=== PATIENT | female | born 1960 | race Caucasian/White ===

== ENCOUNTER → 2023-09-24 10:30 | Outpatient (REF) | payer BC, SELFPAY | LOC: WDC 10:30 | PROVIDERS: ATTENDING PHYSICIAN Obstetrics & Gynecology; FAMILY PHYSICIAN Internal Medicine | DX: N64.4 Mastodynia (principal) | CPT/HCPCS: 76642; 77062; 77066 ==

== ENCOUNTER → 2023-11-26 15:33 | Outpatient (REF) | payer BC, SELFPAY | LOC: RAD 15:33 | PROVIDERS: ATTENDING PHYSICIAN Internal Medicine Critical Care Medicine; FAMILY PHYSICIAN Internal Medicine | DX: R91.8 Other nonspecific abnormal finding of lung field (principal) | CPT/HCPCS: 71250 ==

== ENCOUNTER → 2024-01-29 08:08 | Outpatient (REF) | payer BC, SELFPAY ==
[2024-01-29 09:00] LABS: % Basophils 0.5 % (0-2); % Eosinophils 2.1 % (0-6); % Immature Granulocytes 0.5 % (0-0.5); % Lymphocytes 25.6 % (20.5-51.1); % Neutrophils 62.3 % (42.2-75.2); Absolute Eosinophils 0.1 10^3/uL (0-0.7); Absolute Lymphocytes 1.5 10^3/uL (1.2-3.4); Absolute Monocytes 0.5 10^3/uL (0.1-0.6); Absolute Neutrophils 3.6 10^3/uL (1.4-6.5); Hematocrit 43.4 % (37.0-47.0); Hemoglobin 14.6 g/dL (12.0-16.0); Mean Corp Hgb Conc. 33.6 g/dL (33.0-37.0); Mean Corpuscular Hgb 30.4 pg (27.0-31.0); Mean Corpuscular Volume 90.2 fL (81.0-99.0); Nucleated Red Blood Cells % 0 %; Platelet Count 247 10^3/uL (130-400); Red Blood Cell Count 4.81 10^6/uL (4.20-5.40); Red Cell Dist. Width 12.9 % (11.5-14.5); White Blood Cell Count 5.8 10^3/uL (4.8-10.8)
[2024-01-29 09:35] LABS: ALT (SGPT) 20 U/L (0-35); AST (SGOT) 29 U/L (14-36); Albumin 4.6 g/dl (3.5-5.0); Alkaline Phosphatase 70 U/L (38-126); Blood Urea Nitrogen 18 mg/dl (7-17); Calcium 10.1 mg/dl (8.4-10.2); Carbon Dioxide 29 mmol/L (22-30); Chloride 100 mmol/L (98-107); Glucose 89 mg/dl (70-99); HDL Cholesterol 75 mg/dl; LDL Cholesterol, Calculated 191 mg/dl; Sodium 137 mmol/L (135-145); Total Bilirubin 1.1 mg/dl (0.2-1.3); Total Cholesterol 293 mg/dl (50-199); Triglyceride 138 mg/dl (10-149); Very Low Density Lipoprotein 27 mg/dl (0-30); eGFR > 60.00
[2024-01-29 09:59] LABS: TSH Reflex To Free T4 1.11 uIU/ml (0.47-4.68)
== END ==
LOC: REG 08:08
PROVIDERS: ATTENDING PHYSICIAN Internal Medicine
DX: Z00.00 Encounter for general adult medical examination without abnormal findings (principal)
CPT/HCPCS: 36415; 80053; 80061; 84443; 85025

== ENCOUNTER 2024-06-10 15:10 | Inpatient (IN) | payer MEDICARE, OTHER, SELFPAY ==
[2024-06-10] VITALS (16 sets, daily range): BP systolic 105–128; BP diastolic 61–78; BMI 27.1; BMI 28.2
[2024-06-10] MEDS: ZOFRAN 4 MG IV ×2 (08:09→11:39)
[2024-06-10] MEDS: NSS 1000 IV ×3 (08:10→18:12)
[2024-06-10 08:17] LABS: ALT (SGPT) 14 U/L (0-35); AST (SGOT) 21 U/L (14-36); Alkaline Phosphatase 66 U/L (38-126); Blood Urea Nitrogen 7 mg/dl (7-17); Calcium 8.5 mg/dl (8.4-10.2); Carbon Dioxide 25 mmol/L (22-30); Chloride 94 mmol/L (98-107); Glucose 147 mg/dl (70-99); Potassium 4.1 mmol/L (3.5-5.1); Sodium 128 mmol/L (135-145); Total Bilirubin 1.5 mg/dl (0.2-1.3); Total Protein 6.8 g/dl (6.3-8.2); eGFR > 60.00
[2024-06-10 08:24] LABS: % Basophils 0.3 % (0-2); % Eosinophils 0.3 % (0-6); % Immature Granulocytes 0.3 % (0-0.5); % Monocytes 4.3 % (1.7-9.3); % Neutrophils 89.8 % (42.2-75.2); Absolute Basophils 0.1 10^3/uL (0-0.2); Absolute Eosinophils 0.1 10^3/uL (0-0.7); Absolute Immature Granulocytes 0.1 10^3/uL (0-0.05); Absolute Lymphocytes 0.9 10^3/uL (1.2-3.4); Absolute Monocytes 0.8 10^3/uL (0.1-0.6); Hematocrit 38.7 % (37.0-47.0); Hemoglobin 13.2 g/dL (12.0-16.0); Mean Corp Hgb Conc. 34.1 g/dL (33.0-37.0); Mean Corpuscular Hgb 29.5 pg (27.0-31.0); Mean Corpuscular Volume 86.6 fL (81.0-99.0); Mean Platelet Volume 9.8 fL (7.4-10.4); Nucleated Red Blood Cells % 0 %; Platelet Count 286 10^3/uL (130-400); Red Blood Cell Count 4.47 10^6/uL (4.20-5.40); Red Cell Dist. Width 12.9 % (11.5-14.5); White Blood Cell Count 17.8 10^3/uL (4.8-10.8)
--- NOTE | 2024-06-10 10:35 | ED.GENMED ---
History of Present Illness
General
Chief Complaint: Cold/Flu/URI Symptoms
Source: patient
Exam Limitations: none
Time Seen by Provider: 06/10/24 10:27
Nursing documentation reviewed up to this point in time: agreed with
History of Present Illness
History of Present Illness:
64-year-old female with history of chronic back pain, neuropathy, COPD, lung cancer with right upper lobectomy 2017, left lower lung wedge 06/2020, diverticulitis, GERD presents for significant cough, fever, body aches. Aches started 6 days ago, then
fever and chills. Saw PCP 3 days ago, tested flu +, Covid neg, on day 3 of Tamiflu, cannot sleep due to cough, is fatigued, nauseous. Yesterday fever 102.1. with milder URI.
Past History
Past History
ED Past Medical History: Asthma, Cancer (Lung adenocarcinoma), COPD and GERD
ED Past Surgical History: Bowel resection, Gynecological, Orthopedic, Urological and Other (Lung resection)
Social History
Tobacco: Former smoker
Alcohol: Occasional
Personal:
Living: with family
Employment: Employed
Family History
Family History: Other (Sr. with adenocarcinoma of the lung, followed with brain cancer. Family history of hypertension)
Review of Systems
Review of Systems
Allergies reviewed?: Yes
All Other Systems: ROS reviewed and negative except as documented in HPI and ROS
Constitutional: Reports fever, fatigue and chills
EENT: Denies sore throat
Respiratory: Reports cough; Denies trouble breathing
Cardiac: Denies chest pain
ABD/GI: Reports nausea; Denies abdominal pain, vomiting or diarrhea
: Denies dysuria, frequency or difficulty voiding
Musculoskeletal: Reports other (general body aches)
Skin: Reports no symptoms
Neurological: Reports no symptoms
Phy Exam
Physical Exam
Physical Exam:
GENERAL: No acute distress. A&Ox3.
CONSTITUTIONAL: Afebrile.
EYES: clear, conjunctivae normal
ENMT: moist mucus membranes, Pharynx nl
RESPIRATORY: Regular respirations, nonlabored. Frequent paroxysms of cough. Coarse BS throughout.
CARDIOVASCULAR: Regular rate and rhythm, tachycardic, no murmurs, no rubs.
GI: Soft, nontender, normal BS
MUSCULOSKELETAL: Moves with ease. Well perfused.
SKIN: Warm, dry, pink
PSYCH: Normal mood and affect. Well kept, interactive and appropriate
NEUROLOGIC: Awake, alert and oriented. No focal neurological deficits
Course
Orders/Labs/Results
Orders:
Orders
06/10/24 07:19
Electrocardiogram (*1) Urgent
Reason for Study: Vertigo / Dizzy
EKG- Treatment ONCE
Chest [CR Chest - 2 Views ] Urgent
Comment:
Reason For Exam: cough, shortness of breath
06/10/24 07:25
Ondansetron Injectable [Zofran] 4 mg .ROUTE .STK-MED ONE
06/10/24 07:43
Complete Blood Count/With Diff Urgent
Comprehensive Metabolic Panel Urgent
06/10/24 08:09
0.9% Sodium Chloride 1000 ml [Nss] 1,000 ml IV BOLUS
Ondansetron Injectable [Zofran] 4 mg IV NOW STA
06/10/24 10:45
0.9% Sodium Chloride 1000 ml [Nss] 1,000 ml IV BOLUS
Ondansetron Injectable [Zofran] 4 mg IV NOW STA
06/10/24 10:46
Acetaminophen [Tylenol] 1,000 mg PO NOW STA
06/10/24 10:55
CefTRIAXone [Rocephin] 1,000 mg IV NOW STA
06/10/24 10:56
Azithromycin 500 mg/250 ml [Zithromax Infusion] 500 mg in 250 ml IV NOW
06/10/24 11:44
Ketorolac [Toradol] 15 mg IV NOW STA
06/10/24 12:00
Metoclopramide [Reglan] 10 mg IV NOW STA
06/10/24 13:14
Aspirin 325 mg PO NOW STA
06/10/24 13:33
Troponin I Urgent
06/10/24 13:44
Admit/Transfer Patient As Directed
Co-Sign Provider:
Level of Care: Inpatient admission
Assign to:: IMU- Intermediate Care
Physician / Group: Hospitalist
Diagnosis: Flu PNA and abnormal ECG
Reason for Hospitalization: Flu PNA and abnormal ECG
Expected length of stay greater than two midnights?: Yes
ELOS- Estimated Length of Stay in days: 5
I certify the patient meets the requirements for IP care: Yes
PRN Pain Medication Management As Directed
May give lesser potent ordered pain med per pt: Yes
preference::
Protocol:: Medication orders for pain may be administered in a
manner that supports deferring to patient preference
when the pt is:
- Requesting an ordered lesser potent pain medication.
Least to most potent pain medications are defined
as: acetaminophen < NSAID < tramadol < opioids
(morphine, oxycodone, hydromorphone).
- Requesting a lesser dose of the same medication IF
ORDERED.
- Requesting a less intrusive route of administration
if both routes are prescribed by the provider (PO <
IV).
06/10/24 13:45
Code Status As Directed
Resuscitation Status: Full Code
06/10/24 Dinner
Regular
At Your Request: Full Participation
06/10/24 17:45
0.9% Sodium Chloride 1000 ml [Nss] 1,000 ml IV 125 mls/hr
Heparin 5,000 units SC Q8
Ibuprofen [Motrin] 400 mg PO Q6HPRN PRN
06/10/24 17:45
CARDIOLOGY CONSULT Routine
Consulting Provider: Zafar Mtz
Was physician already notified: Yes
Reason for consult: Abnormal ECG
PULMONARY CONSULT Routine
Consulting Provider: Hector Tran
Was physician already notified: Yes
Reason for consult: Flu PNA
Respiratory Culture/Gram Stain Urgent
RUPINDER Source: Sputum
Specimen Description:
Activity As Directed
Activity Level: Out of Bed-Early Mobility
Intake/ Output As Directed
Frequency: Per unit guidelines
Pneumatic Compression Sleeves As Directed
Type: Knee high
Vital Signs As Directed
Frequency: Per unit guidelines
Weight As Directed
Frequency: Once
Comment: on admission
Pt Eval And Treat Routine
Treatment: eval gait
Activity Level: With Assistance
DX Deep Vein Thrombosis Video Routine
06/10/24 18:00
Famotidine [Pepcid] 20 mg PO QPM
Montelukast Sodium [Singulair] 10 mg PO QPM
Pantoprazole [Protonix] 40 mg PO DAILY
06/10/24 20:00
Guaifenesin [Mucinex] 600 mg PO Q12
Oseltamivir Phosphate [Tamiflu] 75 mg PO BID
06/11/24 04:52
Basic Metabolic Panel IN AM
Complete Blood Count/No Diff IN AM
06/11/24 12:00
Azithromycin 500 mg/250 ml [Zithromax Infusion] 500 mg in 250 ml IV Q24H
CefTRIAXone [Rocephin] 1,000 mg IV Q24H
Abnormal Lab Results
06/10/24
07:43
WBC 17.8 H 10^3/uL
(4.8-10.8)
Abs Immat Gran (auto) 0.1 H 10^3/uL
(0-0.05)
Absolute Neuts (auto) 16.0 H 10^3/uL
(1.4-6.5)
Absolute Lymphs (auto) 0.9 L 10^3/uL
(1.2-3.4)
Absolute Monos (auto) 0.8 H 10^3/uL
(0.1-0.6)
Neutrophils % 89.8 H %
(42.2-75.2)
Lymphocytes % 5.0 L %
(20.5-51.1)
Sodium 128 L mmol/L
(135-145)
Chloride 94 L mmol/L
(98-107)
Glucose 147 H mg/dl
(70-99)
Total Bilirubin 1.5 H mg/dl
(0.2-1.3)
06/10/24 07:43
06/10/24 07:43
Vital Signs
Initial and Last Documented VS:
Initial Vital Signs
Temp Pulse Resp BP Pulse Ox
99.2 F 111 18 117/71 95
06/10/24 07:15 06/10/24 07:15 06/10/24 07:15 06/10/24 07:15 06/10/24 07:15
Last Documented Vital Signs
Temp Pulse Resp BP Pulse Ox
98.2 F 90 18 125/74 93
06/11/24 05:53 06/11/24 07:25 06/11/24 07:25 06/11/24 06:00 06/11/24 09:49
MDM/Problems Addressed
Differential Diagnosis Includes:
Covid, Flu, PNA, viral URI
MDM/Problems Addressed:
64-year-old female with history of chronic back pain, neuropathy, COPD, lung cancer with right upper lobectomy 2017, left lower lung wedge 06/2020, diverticulitis, GERD presents for significant cough, fever, body aches. Aches started 6 days ago, then
fever and chills. Saw PCP 3 days ago, tested flu +, Covid neg, on day 3 of Tamiflu, cannot sleep due to cough, is fatigued, nauseous. Yesterday fever 102.1. with milder URI.
Afebrile, appears mildly ill
EKG: Sinus tach with PVCs. Normal QT interval
10:30 a.m.
CBC: WBC 17.8 w L shift
CMP: Na 128
CXR radiology report read: IMPRESSION:
1. Findings suggestive of right upper lobe pneumonia. No significant parapneumonic effusion.
2. Radiographic follow-up to resolution is recommended to exclude underlying pulmonary lesion.
64 yo with cough, leukocytosis with shift, +Flu A, fever, sleep disturbance due to cough, hx lung CA with partial lung resection, RUL pneumonia on CXR, acute hyponatremia, remains tachycardic after 1L NSS
Pt remains nauseous (no vomiting)after Zofran, will give second dose, will start give IV antibiotics
Discussed admission vs DC home, Pt wants to be admitted
11:00 a.m.
Plan: Admit: PNA, acute hyponatremia,
Hospitalist notified of admission.
At patient's request, Tylenol order changed to Toradol.
12:00 p.m.
Vomiting, Reglan ordered
[facility] and concern for dynamic change/?ischemia, will order Troponin.
Troponin WNL
*Critical Care Note
Total Time (30-74mins, 75-104mins- exclusive of procedures): Not Applicable
ED Attending Note
-
Portions of this chart may have been created with voice recognition software.� Occasional wrong word or��sound alike� substitutions may have occurred due to the inherent limitations of voice recognition software.
Discharge Plan
Departure
Patient Disposition: Admit
Date of Disposition: 06/10/24
Time of Disposition: 11:08
Admit to: Telemetry
Presentation/result/management discussed w/ accepting MD/DO: Hospitalist
Condition: Fair
Discharge Problem:
RUL pneumonia, Acute hyponatremia, Flu dt nvl A w oth resp
Interventions
Interventions:
*Risk Screen - Suicide Last Done: 06/10/24 07:18
*General Assessment Last Done: 06/10/24 07:18
*Neglect/Abuse Screening Last Done: 06/10/24 07:18
ED- Fall Risk Assessment Last Done: 06/10/24 10:41
*ED COVID-19 Vaccine History Last Done: 06/10/24 07:18
*Nursing Disposition Last Done: 06/10/24 16:56
ED- Pulmonary Assessment Last Done: 06/10/24 10:41
Discharge Date and Time
Discharge Date/Time: 06/10/24 17:25
--- NOTE | 2024-06-10 10:40 | EDRN ---
Angelina Siddiqui PORCELAIN ENAMEL REPAIRER currently at the pts bedside
[2024-06-10] MEDS: ROCEPHIN 1000 MG IV (11:40)
[2024-06-10] MEDS: ZITHROMAX INFUSION 250 IV (11:40)
[2024-06-10] MEDS: TORADOL 15 MG IV (11:46)
--- NOTE | 2024-06-10 11:57 | EDRN ---
the pt pressed the clal grider and this RN entered the pts room and the pt stated that she needed to go to the bathroom and felt like she was going to throw up, this RN unhooked the pt from the monitor and the pt was able to ambulate to the bathroom
and is sitting on the toilet with the trash can and is dry heaving into the trash can, this RN notified Angelinageorgette Siddiqui DIRECTOR EXECUTIVE COMMUNICATIONS, the pt was notified to pull the call grider in the bathroom when she was finished or if she needed help
[2024-06-10] MEDS: REGLAN 10 MG IV (12:04)
--- NOTE | 2024-06-10 12:28 | EDRN ---
the pts was brought back to the pts room, the pt is currently sitting in the chair in the room with her legs propped up on the stretcher, the pt stated that she is more comfortable in the chair, Sp02 98% on RA, HR in the 90's, no s/s of
distress, the pt states that her nausea is gone, call grider within reach, will continue to monitor the pt closely
--- NOTE | 2024-06-10 12:31 | EDRN ---
the pt pressed the call grider and this RN entered the pts room, the pt was laying in the stretcher and stated that she is ready to lay down now, the pt also changed herself into the hospital gown that was provided for her, no s/s of distress, the pt
is resting in stretcher in the lowest position, side rails up x2, call grider within reach, HOB elevated, will continue to monitor the pt closely
--- NOTE | 2024-06-10 13:29 | HPS.HSE ---
Family Physician
-
Family Physician: Kimberly Sinclair
Chief Complaint
-
cough
History of Present Illness
64-year-old woman with history of:
chronic back pain,
neuropathy,
COPD,
lung cancer with right upper lobectomy 2017, left lower lung wedge 06/2020,
diverticulitis,
GERD
presents with significant cough, fever, body aches. The aches started 6 days ago, then fever and chills. She saw her PCP 3 days ago, and tested flu +, Covid neg. She is now on day 3 of Tamiflu, cannot sleep due to cough, is fatigued, nauseous.
Yesterday she had a fever 102.1. with milder URI. She had a flu vaccine this year. able to answer questions appropriately and was not using secondary muscles of respiration. Satting at 92% on RA.
Medical History
Past Medical History
Past Medical History: Reports Other
Additional Past Medical History:
Asthma,
Cancer (Lung adenocarcinoma),
COPD
GERD
Bowel resection,
Gynecological, Orthopedic, Urological surgeries
Lung resection
UTI
Uterine leiomyoma (fibroids)
DIVERTICULITIS
LOW BACK PAIN
sciatic pain-combo injections
Meniscus tear, right knee
Atypical ductal hyperplasia of breast
Bronchitis, chronic recurrent
Pneumonia
Colon polyps, benign
Obstructive sleep apnea
Lung Cancer x2
ascending aortic aneurysm
bilateral bunion repair
Bilateral tubal ligation
Right meniscus repair (2011)
Uterine Fibroids embolization x 2
Uterine fibriods with ablation
Lumpectomy, right breast 05/2016
R U lobectomy (November 2017)
LL lobe resection 07/13/2020
Laparoscopic sigmoidectomy ([facility]) 10/03/2021
MRSA
Past Surgical History: Reports Other
Additional Past Surgical History:
see above
Social History
Tobacco: Former Smoker
Alcohol: None
Drug: None
Personal:
Living: With Family
Employment: Retired
Family History
Family History: Cancer
Allergies / Home Medications
Allergies reflects when Allergies were last updated in [facility].
Home Medications with original date entered in [facility]
Allergy/Medication List:
Allergies
Allergy/AdvReac Type Severity Reaction Status Date / Time
codeine Allergy Hives - Verified 06/10/24 07:15
SEE COMMENT
Gadolinium-Containing Allergy Hives / Verified 06/10/24 07:15
Contrast Medi MRI dye
[Gadolinium-Containing
Contrast Media]
Sulfa (Sulfonamide Allergy Hives Verified 06/10/24 07:15
Antibiotics)
tetracycline Allergy Hives Verified 06/10/24 07:15
Home Medications
albuterol sulfate 90 mcg/actuation aerosol inhaler 2 puff inhalation R Q4HPRN PRN sob 01/05/18
multivitamin with folic acid 400 mcg tablet (Tab-A-Lizeth) 1 tab PO DAILY Supplement 01/05/18
montelukast 10 mg tablet 10 mg PO QPM Lung/breathing issues 06/24/19
esomeprazole magnesium 40 mg capsule,delayed release (Nexium) 40 mg PO DAILY Gastrointestinal issue 09/30/21
famotidine 20 mg tablet 20 mg PO QPM Gastrointestinal issue 09/30/21
budesonide-formoterol HFA 160 mcg-4.5 mcg/actuation aerosol inhaler (Symbicort) 2 inh inhalation R BID 06/10/24
ibuprofen 200 mg tablet 400 mg PO Q6HPRN PRN moderate pain 06/10/24
oseltamivir 75 mg capsule (Tamiflu) 75 mg PO BID 06/10/24
Review of Systems
-
History Source: Patient
A 12 point ROS was completed and negative except as noted: Yes
Constitutional: Reports Fever, Fatigue, Sleep Disturbance and Night Sweats
Respiratory: Reports Cough and Trouble Breathing
Physical Exam
Vital Signs
Vital Signs
Temp Pulse Resp BP Pulse Ox
99.2 F 103 19 126/71 95
06/10/24 11:51 06/10/24 11:51 06/10/24 11:51 06/10/24 11:51 06/10/24 11:51
Physical Exam
General: Well Developed, Well Nourished, Conversant and Respiratory Distress
HEENT: NormoCephalic, Nose Appears Normal and Ears Appear Normal
Respiratory: Rhonchi and Decreased Breath Sounds
Cardiac: S1/S2 and Regular Rhythm
GI: Soft, Non Tender and Non Distended
Musculoskeletal: No Clubbing, No Cyanosis and No Edema
Skin: Warm and Dry
Neuro: Awake, Alert, Oriented and AO x 3
Psych: Calm
Laboratory Results
-
06/10/24 07:43
06/10/24 07:43
Laboratory Results
Total Bilirubin 1.5 mg/dl (0.2-1.3) H 06/10/24 07:43
AST 21 U/L (14-36) 06/10/24 07:43
ALT 14 U/L (0-35) 06/10/24 07:43
Alkaline Phosphatase 66 U/L (38-126) 06/10/24 07:43
Data Reviewed
-
Lab Data: Labs Reviewed by me
Impression/Plan
-
IMPRESSION:
64 woman with +Flu-a PNA and an abnormal ECG. Relevant findings:
ECG:
SINUS TACHYCARDIA WITH FREQUENT PREMATURE VENTRICULAR COMPLEXES
POSSIBLE LEFT ATRIAL ENLARGEMENT
T WAVE ABNORMALITY, CONSIDER ANTEROLATERAL ISCHEMIA
CXR:
1. Findings suggestive of right upper lobe pneumonia. No significant parapneumonic effusion.
2. Radiographic follow-up to resolution is recommended to exclude underlying pulmonary lesion.
Na 128
WBC 17.8
PLAN:
1. +Flu-A PNA. No contacts with birds or cows. post surgical / post cancer lung anatomy.
Admit to IMU
Pulmonary consult
Question: should tamiflu be continued?
Given h/o asthma, add steroids and nebs
She already had abx in ED, next dosing to be decided after pulmonary consult
Note that she does have a h/o MRSA
2. Abnormal ECG - Flu is a highly inflammatory event and rates of NH are higher after flu infections
ASA now
Cycle troponins
Cardiology consult
Telemetry
3. Hyponatremia - likely hypovolemic hyponatremia
Normal saline
4. GERD - continue PPI
Full code
VCD for DVTp
[2024-06-10] MEDS: ASPIRIN 325 MG PO (13:30)
[2024-06-10 14:07] LABS: Troponin I < 0.012 ng/ml
--- NOTE | 2024-06-10 14:22 | EDRN ---
this RN noticed that the pts Sp02 dipped to 90% on RA, this RN notified the provider and entered the pts room on 2L NC Sp02 96%, no c/o SOB, no c/o chest pain
--- NOTE | 2024-06-10 15:12 | CON.CAR ---
Addendum entered and electronically signed by Zafar Mtz MD 06/10/24 16:33:
I saw and examined the patient.
The MANAGER IN TRAINING's note was reviewed and I agree with the note.
Comment: 64 y/o female with asthma, lung cancer s/p resection, GERD, and COPD who has had cough, fever, chills, aches and tested positive for flu as OP. Symptoms did not improve and she is here for further management. She has had a dull chest ache
for about a week. This does not appear cardiac in nature, however, will obtain another troponin and if negative she can follow up as an outpatient.
- troponin pending
Original Note:
Consultation
Consultation Request
Date/Time Consultation Requested: 06/10/24 1406
Date/Time Consultation Performed: 06/10/24 1450
Requesting Provider: Dr. Al
Performing Provider: Nora CALIX for Dr. Mtz
Reason for Consultation: Abnormal EKG and CP
Medical History
-
Chief Complaint: flu symptoms
History of Present Illness:
64 y/o female with asthma, lung cancer s/p resection, GERD, and COPD who has had cough, fever, chills, aches and tested positive for flu as OP. Symptoms did not improve and she is here for further management. She has had a dull chest ache for about
a week. Her EKG shows anterior and lateral T wave inversions. Troponin is normal. She is coughing throughout our visit, which is one of her main complaints. CXR shows PNA.
Past Medical History
Past Medical History: Asthma, COPD and GERD
Social History
Tobacco: Former Smoker
Personal:
Living: With Family
Allergies / Home Medications
Allergy/AdvReac Type Severity Reaction Status Date / Time
codeine Allergy Hives - Verified 06/10/24 07:15
SEE COMMENT
Gadolinium-Containing Allergy Hives / Verified 06/10/24 07:15
Contrast Medi MRI dye
[Gadolinium-Containing
Contrast Media]
Sulfa (Sulfonamide Allergy Hives Verified 06/10/24 07:15
Antibiotics)
tetracycline Allergy Hives Verified 06/10/24 07:15
�Medication �Instructions �Recorded �Confirmed �Type
albuterol sulfate 90 mcg/actuation 2 puff inhalation R Q4HPRN PRN sob 01/05/18 06/10/24 History
aerosol inhaler
multivitamin with folic acid 400 1 tab PO DAILY Supplement 01/05/18 06/10/24 History
mcg tablet (Tab-A-Lizeth)
montelukast 10 mg tablet 10 mg PO QPM Lung/breathing issues 06/24/19 06/10/24 History
esomeprazole magnesium 40 mg 40 mg PO DAILY Gastrointestinal 09/30/21 06/10/24 History
capsule,delayed release (Nexium) issue
famotidine 20 mg tablet 20 mg PO QPM Gastrointestinal issue 09/30/21 06/10/24 History
budesonide-formoterol HFA 160 2 inh inhalation R BID 06/10/24 06/10/24 History
mcg-4.5 mcg/actuation aerosol
inhaler (Symbicort)
ibuprofen 200 mg tablet 400 mg PO Q6HPRN PRN moderate pain 06/10/24 06/10/24 History
oseltamivir 75 mg capsule (Tamiflu) 75 mg PO BID 06/10/24 06/10/24 History
Review of Systems
-
History Source: Patient
All other systems: Negative unless noted
Constitutional: Fever and Chills
Respiratory: Cough
Musculoskeletal: Muscle Pain
Physical Exam
Vital Signs
Temp Pulse Resp BP Pulse Ox
97.5 F 99 20 105/65 95
06/10/24 14:17 06/10/24 15:00 06/10/24 14:17 06/10/24 15:00 06/10/24 15:00
Lab Results
06/10/24 07:43
06/10/24 07:43
Troponin I < 0.012 ng/ml 06/10/24 13:33
Physical Exam
General: Well Developed, Well Nourished and No Apparent Distress
HEENT: Normocephalic and Anicteric
Respiratory: Wheezes, Rhonchi and Other (on 2L NC)
Cardiac: Regular Rhythm
Neuro: AO x 3
Psych: Calm
Impression / Plan
-
Flu, PNA:
-s/p IV abx. On Tamiflu.
-also with history of asthma/COPD and on steroids and breathing tx. Also hx lung cancer s/p surgery.
-pulmonary is consulted.
-continue medicines and treatment as per internal medicine and pulmonary teams
Abnormal EKG:
-in setting of acute illness
-troponin is normal, check another to ensure no change. Likely OP stress test, unless trop becomes abnormal.
-her CP has been present for 1 week and is likely related to coughing, PNA, and does not sound to be anginal.
GERD:
-on H2 david and PPI- continue
Data Reviewed
-
EKG: Tracing Personally Visualized and interpreted (ST with PVC's 105 BPM, T wave inversions anterior and lateral)
Radiology: Report Reviewed by me (CXR: findings suggestive of right upper lobe pneumonia. No significant parapneumonic effusion. 2. Radiographic follow-up to resolution is recommended to exclude underlying pulmonary lesion.)
Labs: Labs Reviewed by me
--- NOTE | 2024-06-10 15:51 | CON.PUL ---
Consultation
Consultation Request
Date/Time Consultation Requested: 06/10/2024
Date/Time Consultation Performed: 06/10/2024
Requesting Provider: Dr. lA
Performing Provider: Dr. Hector Devine
Reason for Consultation: Hypoxemic respiratory failure
Medical History
-
History of Present Illness:
64-year-old woman with past medical history significant for prior lung resection from lung cancer x 2, mild COPD with chronic bronchitis, former smoker, chronic back pain, prior history of MRSA pneumonia with complication requiring chest tube
placement, presented with cough, fever and bodyaches. Symptoms started about 6 days ago with fevers and chills. Primary doctor evaluated patient and diagnosed with influenza A. COVID-negative. Started on Tamiflu. Cough was significant,
interfering with lifestyle, sleep etc. She feels fatigued and nauseous.
Fever up to 102 �F. Patient is flu vaccinated this year.
92% on room air.
Chest x-ray performed on admission showed right upper lobe infiltrate suggesting pneumonia.
Patient denies any nausea, vomiting, diarrhea. Denies hemoptysis.
Past Medical History
Past Medical History: Other (See assessment and plan)
Social History
Tobacco: Former Smoker (1-1/2 pack/day for 20 years quit in 1994.)
Alcohol: None
Drug: None
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
Family History
Family History: Reviewed & Not Pertinent
Allergies / Home Medications
Allergies
Allergy/AdvReac Type Severity Reaction Status Date / Time
codeine Allergy Hives - Verified 06/10/24 07:15
SEE COMMENT
Gadolinium-Containing Allergy Hives / Verified 06/10/24 07:15
Contrast Medi MRI dye
[Gadolinium-Containing
Contrast Media]
Sulfa (Sulfonamide Allergy Hives Verified 06/10/24 07:15
Antibiotics)
tetracycline Allergy Hives Verified 06/10/24 07:15
Home Medications
�Medication �Instructions �Recorded �Confirmed �Last Taken �Type
albuterol sulfate 90 mcg/actuation 2 puff inhalation R Q4HPRN PRN sob 01/05/18 06/10/24 06/09/24 History
aerosol inhaler
multivitamin with folic acid 400 1 tab PO DAILY Supplement 01/05/18 06/10/24 06/09/24 History
mcg tablet (Tab-A-Lizeth)
montelukast 10 mg tablet 10 mg PO QPM Lung/breathing issues 06/24/19 06/10/24 06/09/24 History
esomeprazole magnesium 40 mg 40 mg PO DAILY Gastrointestinal 09/30/21 06/10/24 06/09/24 History
capsule,delayed release (Nexium) issue
famotidine 20 mg tablet 20 mg PO QPM Gastrointestinal issue 09/30/21 06/10/24 06/09/24 History
budesonide-formoterol HFA 160 2 inh inhalation R BID 06/10/24 06/10/24 06/09/24 History
mcg-4.5 mcg/actuation aerosol
inhaler (Symbicort)
ibuprofen 200 mg tablet 400 mg PO Q6HPRN PRN moderate pain 06/10/24 06/10/24 06/09/24 History
oseltamivir 75 mg capsule (Tamiflu) 75 mg PO BID 06/10/24 06/10/24 06/09/24 History
Review of Systems
-
History Source: Patient
All other systems: Negative unless noted
Vitals / Labs / Diagnostic Testing
Vital Signs
Temp Pulse Resp BP Pulse Ox
97.5 F 99 20 105/65 95
06/10/24 14:17 06/10/24 15:00 06/10/24 14:17 06/10/24 15:00 06/10/24 15:00
Lab Data
06/10/24 07:43
06/10/24 07:43
Diagnostic Testing:
Physical Exam
-
HEENT: Normocephalic
Cardiovascular: S1/S2
Respiratory: Clear and Non-Labored Respirations
GI: Soft and Non Distended
Neurology: Awake, Oriented and No Motor Deficits
Skin: Warm
General: Comfortable
Assessment
-
64-year-old woman with past medical history noted. Admitted with cough, fever, shortness of breath. 3 days ago diagnosed with flu, started on Tamiflu by primary doctor. Symptoms progressed and patient came to the emergency room for evaluation.
Chest x-ray demonstrated right upper lobe infiltrate. We were consulted for further evaluation.
Right upper lobe pneumonia-suspect superinfection-flu +3 days ago
MRSA screening positive in 2021
Leukocytosis
Hyponatremia
Conditions present prior admission:
Obstructive sleep apnea-mild AHI 10.8 events per hour-intolerant to CPAP
COPD/chronic bronchitis
Pulmonary function testing 04/07/2024: FEV1 80% of predicted/FVC 86% of predicted/FEV1/FVC ratio 71%/DLCO 75%.
On Symbicort/follows up with Dr. Mullen-last appointment 04/07/2024.
Last prednisone was in the spring 2022
Prior history of complicated parapneumonic effusion in December 2017 with MRSA pneumonia
Multiple pulmonary nodules stable December 2023-plan was to repeat December 2024.
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
Family history of lung cancer
chronic back pain
Neuropathy
History of diverticulitis
GERD
History of ascending aortic aneurysm
Right breast lumpectomy 2015
Laparoscopy with sigmoidectomy 10/03/2021
Assessment and plan:
Clinical picture consistent with influenza pneumonia-suspect bacterial superinfection-chest x-ray on admission with right upper lobe infiltrate. New compared to prior.
-
Continue Tamiflu complete 5 days.
Agree with ceftriaxone/azithromycin-hopefully 5 to 7-day course depending on clinical situation.
Sputum culture, if able to produce.
Blood cultures pending.
Trend - Currently afebrile leukocytosis
Patient has history of MRSA in the past
Obtain MRSA screening, if patient not doing well and depending on the sputum culture may need to consider vancomycin. For now hold
-
Currently not requiring oxygen supplementation
-
COPD mild-usually on Symbicort-minimal expiratory wheezing on exam.
With significant coughing unclear whether she is going to be able to perform inhaler maneuver. Discussed with patient will transition to DuoNebs 3 times a day while in the hospital.
Antitussives
Mucolytic
Cepacol lozenges
Continue IV steroids for now-8 mg IV every 6 -hopefully short taper
-
Oxygen supplementation as needed-pulse ox above 90% at the moment.
-
Patient will need radiographic follow-up
-
Outpatient follow-up with Dr. Mullen after DC. Last time seen in the office in March 2024 she was doing well
[2024-06-10] MEDS: PEPCID 20 MG PO (18:11)
[2024-06-10] MEDS: DECADRON 8 MG IV ×2 (18:11→23:51)
[2024-06-10] MEDS: PROTONIX 40 MG PO (18:11)
[2024-06-10] MEDS: SINGULAIR 10 MG PO (18:12)
[2024-06-10] MEDS: HEPARIN 5000 UNITS SC (18:17)
[2024-06-10] MEDS: DECADRON IV (18:17)
--- NOTE | 2024-06-10 18:40 | PTCARENOTE ---
Received pt from ED at 17:45. Pt ambulated from stretcher to bed w/o incident. Pt AAOx3, able to make needs known. Admission questions completed. VSS. 95% on 2LNC. NSS @125ml/hr started through R AC. No complaints of pain at this time. Will continue
to monitor.
[2024-06-10 19:04] LABS: Troponin I 0.018 ng/ml
[2024-06-10] MEDS: TAMIFLU 75 MG PO (20:00)
[2024-06-10] MEDS: MUCINEX 600 MG PO (20:00)
[2024-06-10] MEDS: DUONEB 3 ML INH (20:21)
[2024-06-10] MEDS: HEPARIN SC (23:51)
[2024-06-11] VITALS (17 sets, daily range): BP systolic 109–134; BP diastolic 56–93; PULSE 93; O2SAT 96; BMI 27.9
[2024-06-11] MEDS: NSS 1000 IV ×3 (02:19→21:01)
[2024-06-11 05:15] LABS: Hematocrit 37.1 % (37.0-47.0); Hemoglobin 12.2 g/dL (12.0-16.0); Mean Corp Hgb Conc. 32.9 g/dL (33.0-37.0); Mean Corpuscular Hgb 28.8 pg (27.0-31.0); Mean Corpuscular Volume 87.5 fL (81.0-99.0); Platelet Count 251 10^3/uL (130-400); Red Blood Cell Count 4.24 10^6/uL (4.20-5.40); Red Cell Dist. Width 13.1 % (11.5-14.5); White Blood Cell Count 11.2 10^3/uL (4.8-10.8)
[2024-06-11 05:35] LABS: Blood Urea Nitrogen 8 mg/dl (7-17); Calcium 8.2 mg/dl (8.4-10.2); Carbon Dioxide 23 mmol/L (22-30); Chloride 103 mmol/L (98-107); Estimated Creatinine Clearance 106 ml/min; Glucose 147 mg/dl (70-99); Potassium 4.5 mmol/L (3.5-5.1); Sodium 136 mmol/L (135-145); eGFR > 60.00
[2024-06-11] MEDS: DECADRON 8 MG IV ×3 (06:24→17:10)
[2024-06-11] MEDS: DUONEB 3 ML INH ×3 (07:22→19:29)
[2024-06-11] MEDS: MUCINEX 600 MG PO ×2 (08:51→19:50)
[2024-06-11] MEDS: HEPARIN 5000 UNITS SC (08:51)
[2024-06-11] MEDS: TAMIFLU 75 MG PO ×2 (08:51→19:50)
[2024-06-11] MEDS: PROTONIX 40 MG PO (08:51)
[2024-06-11] MEDS: ROCEPHIN 1000 MG IV (11:43)
[2024-06-11] MEDS: ZITHROMAX INFUSION 250 IV (11:43)
[2024-06-11] MEDS: MOTRIN 400 MG PO (11:51)
--- NOTE | 2024-06-11 12:52 | W.PN.HOSP.TC ---
Today's Communication/Plan
-
Continue with IV antibiotics and Tamiflu
Monitor respiratory status
Possible discharge tomorrow
Assessment / Plan
Assessment / Plan
#Acute hypoxemic respiratory insufficiency
#Possible superimposed bacterial CAP
#H/O lung cancer s/p wedge resection
-Influenza A test positive; unclear source of infection; presented with shortness of breath and fever
-Continued on Tamiflu, started on ceftriaxone and azithromycin for possible pneumonia
-Has clinically improved since admission, now weaned off of oxygen
-Will continue with Tamiflu to complete 5-day course
-Continue with ceftriaxone and azithromycin, plan 7 days of Abx
-Trend CBC and temperature curve
#Abnormal ECG
-Was evaluated by cardiology, no suspicion for acute infarct or arrhythmia
-Troponin was normal here
-Can consider outpatient stress test
#GERD
-Home medications include famotidine
-No known history of erosive disease or Danielle's esophagus
#COPD
-Home medications include Symbicort and as needed albuterol MDI
-Does not require supplemental oxygen at baseline; no recent PFT available
-No signs of exacerbation here
DVT prophylaxis: Subcutaneous heparin
Diet: Regular
CODE STATUS: Full code
Disposition: Possible discharge home tomorrow
Anticipated Discharge: Within 24 hours
Subjective/Interval History
-
Date of Service: June 11, 2024
Seen and examined at the bedside. No acute events reported overnight. AFVSS this morning on room air
She states she feels better, was removed from supplemental oxygen and continues to feel well
Denies any acute complaints including chest pain, fevers or chills, GI issues, urinary issues, bleeding or bruising, paresthesias or weakness
Objective Data
-
Labs:
Laboratory Results
06/11/24
04:52
WBC 11.2 H
Hgb 12.2
Hct 37.1
Plt Count 251
Sodium 136 D
Potassium 4.5
Chloride 103
Carbon Dioxide 23
BUN 8
Creatinine 0.6
Glucose 147 H
Calcium 8.2 L
Vital Signs:
Vital Signs
Temp Pulse Resp BP Pulse Ox
97.6 F 90 18 118/73 96
06/11/24 11:05 06/11/24 12:47 06/11/24 12:47 06/11/24 10:00 06/11/24 12:47
I&O
06/10/24 06/11/24 06/12/24
06:59 06:59 06:59
Intake Total 480 / 480 240 / 240
Balance 480 / 480 240 / 240
Review of Systems
-
History Source: Patient
All other systems: Reviewed and negative
Physical Exam
-
General: Well Developed, Well Nourished, No Apparent Distress and Comfortable
HEENT: Normocephalic, Atraumatic, Moist Mucous Membranes and Anicteric
Respiratory: Rhonchi and Non Labored Respirations; Negative Accessory Resp Muscle Use
Cardiac: Regular Rhythm and S1/S2; Negative Murmur, Rub or Gallop
GI: Soft, Nontender, Nondistended and Normal Bowel Sounds
Musculoskeletal: No Clubbing, No Cyanosis and No Edema
Skin: Warm and Dry; Negative Rash
Neuro: AO x 3 and Nonfocal/Grossly Intact; Negative Tremors
Psych: Calm
Data Reviewed
-
Labs: Labs Reviewed by me and Discussed with Patient
--- NOTE | 2024-06-11 15:09 | PTCARENOTE ---
Assumed care of patient this morning. She is aaox3. States she is feeling better than yesterday. Pt now on RA. Pt does have a harsh cough but unable to bring anything up at this time. Pt provided IS and acapella, per request of while he
was at the bedside. Pt provided education on both. Pt is refusing SCDs, education provided and pt reports 'I am getting up and moving.' Initially refused Heparin SC but then accepted. Pt denies any nausea or vomiting. Pt reports minimal pain but did
ask for Motrin, see MAR. Assessment, care and VS as charted.
--- NOTE | 2024-06-11 16:06 | CM ---
Patient seen at bedside
Dx: flu, PNA
IA completed
Lives in a 2 story home with , 2 steps to enter, flight to second floor
PLOF: Independent, works at cardiology office
Denies DME
has had vn in past does not recall agency, denies Rehab
PCP: Kimberly Sinclair
Pharmacy: [facility], [address] [place]
PLAN: Home, no anticipated needs
to transport
[2024-06-11] MEDS: SINGULAIR 10 MG PO (17:09)
[2024-06-11] MEDS: HEPARIN SC ×2 (17:09→23:20)
[2024-06-11] MEDS: PEPCID 20 MG PO (17:09)
--- NOTE | 2024-06-11 18:27 | W.PN.PUL3 ---
Today's Communication / Plan
-
Continue airway clearance
Continue antibiotics
May consider coming down on the steroids
DVT prophylaxis
Tamiflu
Assessment
-
64-year-old woman with past medical history noted. Admitted with cough, fever, shortness of breath. 3 days ago diagnosed with flu, started on Tamiflu by primary doctor. Symptoms progressed and patient came to the emergency room for evaluation.
Chest x-ray demonstrated right upper lobe infiltrate. We were consulted for further evaluation.
Right upper lobe pneumonia-suspect superinfection-flu +3 days ago
MRSA screening positive in 2021
Leukocytosis
Hyponatremia
Conditions present prior admission:
Obstructive sleep apnea-mild AHI 10.8 events per hour-intolerant to CPAP
COPD/chronic bronchitis
Pulmonary function testing 04/07/2024: FEV1 80% of predicted/FVC 86% of predicted/FEV1/FVC ratio 71%/DLCO 75%.
On Symbicort/follows up with Dr. Mullen-last appointment 04/07/2024.
Last prednisone was in the spring 2022
Prior history of complicated parapneumonic effusion in December 2017 with MRSA pneumonia
Multiple pulmonary nodules stable December 2023-plan was to repeat December 2024.
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
Family history of lung cancer
chronic back pain
Neuropathy
History of diverticulitis
GERD
History of ascending aortic aneurysm
Right breast lumpectomy 2016
Laparoscopy with sigmoidectomy 10/03/2021
Assessment and plan:
Clinical picture consistent with influenza pneumonia-suspect bacterial superinfection-chest x-ray on admission with right upper lobe infiltrate. New compared to prior.
-
Continue Tamiflu complete 5 days.
Continue ceftriaxone/azithromycin-hopefully 5 to 7-day course depending on clinical situation.
Sputum culture, if able to produce.
Blood cultures pending.
Trend - Currently afebrile leukocytosis
Patient has history of MRSA in the past
Obtain MRSA screening, if patient not doing well and depending on the sputum culture may need to consider vancomycin. For now hold
-
Currently not requiring oxygen supplementation
-
COPD mild-usually on Symbicort-minimal expiratory wheezing on exam.
With significant coughing unclear whether she is going to be able to perform inhaler maneuver. Discussed with patient will transition to DuoNebs 3 times a day while in the hospital.
Antitussives
Mucolytic
Cepacol lozenges
Continue IV steroids for now-8 mg IV every 6 -hopefully short taper
-
Oxygen supplementation as needed-pulse ox above 90% at the moment.
-
Patient will need radiographic follow-up
DVT prophylaxis: Subcutaneous heparin. Patient refusing sequential. She states she is ambulating
-
Outpatient follow-up with Dr. Mullen after DC. Last time seen in the office in March 2024 she was doing well
Subjective Data
-
Date of Service:
Date of Service: June 11, 2024
Subjective:
Patient seen earlier today, late entry. Continues to have productive cough. Denies hemoptysis. Has mild vague chest discomfort. Appears to be in good spirits
Objective Data
Data Reviewed
Vital Signs / I&O / Oxygen:
Vital Signs
Temp Pulse Resp BP Pulse Ox
98.0 F 98 19 122/60 93
06/11/24 16:00 06/11/24 18:00 06/11/24 18:00 06/11/24 18:00 06/11/24 18:00
Intake and Output
06/10/24 06/11/24 06/12/24
06:59 06:59 06:59
Intake Total 480 / 480 2825 / 2825
Balance 480 / 480 2825 / 2825
SaO2 93
Nasal Cannula flow liters per 0
minute
Physical Exam
General: Comfortable
HEENT: Normocephalic and Anicteric
Cardiovascular: S1-S2, Regular Rhythm, Murmur (n), Rub (n) and Peripheral Edema (n)
Respiratory: Wheeze (n), Crackles, Rhonchi (Scattered) and Non-Labored Respirations
GI: Soft, Non Distended and Non Tender
Neurology: Awake, Alert and No Motor Deficits
Skin: Cyanosis (n), Jaundice (n) and Rash (n)
Labs/Micro/Reports
Lab Data
06/11/24 04:52
06/11/24 04:52
--- NOTE | 2024-06-11 20:00 | PTCARENOTE ---
Received pt from previous shift. Assessment performed, see flowsheets. Pt SaO2 96% on RA. No complaints of pain at this time. NSS at 125mL/hr switched to RAC as R forearm PIV was 'feeling like it infiltrated' according to pt. Assessed the line and
it appears to flush and work normally. Evening medications given, see MAR. Pt declining the 00:00 SQ heparin.
[2024-06-11] MEDS: NITROSTAT (SUBLINGUAL) 0.4 MG SL (21:00)
--- NOTE | 2024-06-11 21:30 | PTCARENOTE ---
Pt reporting chest pain at 20:30 that feels like 'pressure' and radiating down the L arm. She is unsure if it is anxiety related, or related to her breathing treatment, or cardiac. House Provider Sherie Granger notified. EKG obtained, orders received
for q6h troponins, and one dose of 0.4mg SL nitro given with no improvement in symptoms. Pt states the pain is mild at 3/10. She did not want to try another nitro. Will continue to monitor.
[2024-06-11 21:48] LABS: Troponin I 0.013 ng/ml
[2024-06-12] VITALS (12 sets, daily range): BP systolic 102–147; BP diastolic 61–82
[2024-06-12] MEDS: MOTRIN 400 MG PO (03:02)
[2024-06-12 03:53] LABS: Troponin I < 0.012 ng/ml
[2024-06-12 04:17] LABS: % Basophils 0.2 % (0-2); % Immature Granulocytes 1.5 % (0-0.5); % Monocytes 3.2 % (1.7-9.3); % Neutrophils 90.1 % (42.2-75.2); Absolute Immature Granulocytes 0.3 10^3/uL (0-0.05); Absolute Monocytes 0.6 10^3/uL (0.1-0.6); Absolute Neutrophils 17.4 10^3/uL (1.4-6.5); Hematocrit 31.8 % (37.0-47.0); Hemoglobin 10.5 g/dL (12.0-16.0); Mean Corpuscular Hgb 28.8 pg (27.0-31.0); Mean Corpuscular Volume 87.1 fL (81.0-99.0); Mean Platelet Volume 9.9 fL (7.4-10.4); Nucleated Red Blood Cells % 0 %; Platelet Count 341 10^3/uL (130-400); Red Blood Cell Count 3.65 10^6/uL (4.20-5.40); Red Cell Dist. Width 13.1 % (11.5-14.5); White Blood Cell Count 19.3 10^3/uL (4.8-10.8)
[2024-06-12] MEDS: DUONEB 3 ML INH ×4 (07:21→21:32)
[2024-06-12] MEDS: HEPARIN 5000 UNITS SC ×3 (07:42→22:51)
[2024-06-12] MEDS: DECADRON 4 MG IV (07:42)
[2024-06-12] MEDS: MUCINEX 600 MG PO ×2 (07:42→19:49)
[2024-06-12] MEDS: PROTONIX 40 MG PO (07:42)
[2024-06-12] MEDS: TAMIFLU 75 MG PO ×2 (07:42→19:49)
--- NOTE | 2024-06-12 09:42 | PTCARENOTE ---
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 Denies CP this morning. Lungs coarse t/o with rhonchi; POx 93% on RA. Patient ambulating to BR without difficulty, although she states she does get AVILA. Continues with loose cough,
occasionally producing brown sputum; provided sterile cup to obtain sputum specimen as ordered; continues with IS and acapella. HR low 100s-115 while in bed. Refusing to wear SCDs but did take heparin sc injection this morning; educated patient
regarding SCDs. Dr Mullen in room to see patient this morning and aware patient not wearing SCDs but did agree to heparin.
--- NOTE | 2024-06-12 11:37 | W.PN.HOSP.TC ---
Today's Communication/Plan
-
Transition steroids to oral regimen tomorrow
Transition antibiotic to cefdinir tomorrow (to complete 7 days)
Last day of oseltamivir (day 5)
Continue with bronchodilators
Start benzonatate as needed for cough
Assessment / Plan
Assessment / Plan
#Acute hypoxemic respiratory insufficiency
#Possible superimposed bacterial CAP
#H/O lung cancer s/p wedge resection
#COPD exacerbation
-Chronic COPD of unclear severity, no recent PFT; Home medications include Symbicort and albuterol
-Influenza A test positive; unclear source of infection; presented with shortness of breath and fever
-Continued on Tamiflu, started on ceftriaxone and azithromycin for possible pneumonia, steroid for COPD
-Has clinically improved since admission, now weaned off of oxygen, lungs sound improved
Plan
-Continue with ceftriaxone and azithromycin, plan 7 days of Abx
-Transition IV steroid to prednisone 20 mg tomorrow, plan for short taper
-Will continue with Tamiflu to complete 5-day course
-Trend CBC and temperature curve
#Leukocytosis
-Likely that steroids are the cause for this, otherwise clinically improved
#Abnormal ECG
-Was evaluated by cardiology, no suspicion for acute infarct or arrhythmia
-Troponin was normal here
-Can consider outpatient stress test
#GERD
-Home medications include famotidine
-No known history of erosive disease or Danielle's esophagus
DVT prophylaxis: Subcutaneous heparin
Diet: Regular
CODE STATUS: Full code
Anticipated Discharge: 24 - 48 hours
Subjective/Interval History
-
Date of Service: June 12, 2024
Seen and examined at the bedside. No acute events reported overnight. AFVSS this morning on room air
She states that she feels short of breath at times, still worse with exertion. Improving slowly however. Complains of persistent dry cough
Denies any acute complaints today
Objective Data
-
Labs:
Laboratory Results
06/12/24
03:06
WBC 19.3 H
Hgb 10.5 L
Hct 31.8 L
Plt Count 341 D
Vital Signs:
Vital Signs
Temp Pulse Resp BP Pulse Ox
98.2 F 100 25 147/79 92
06/12/24 07:45 06/12/24 10:00 06/12/24 10:00 06/12/24 10:00 06/12/24 10:00
I&O
06/11/24 06/12/24 06/13/24
06:59 06:59 06:59
Intake Total 480 / 480 3825 / 3825
Balance 480 / 480 3825 / 3825
Review of Systems
-
History Source: Patient
All other systems: Reviewed and negative
Physical Exam
-
General: Well Developed, Well Nourished, No Apparent Distress and Comfortable
HEENT: Normocephalic, Atraumatic, Moist Mucous Membranes and Anicteric
Respiratory: Clear to Auscultation and Non Labored Respirations; Negative Wheezes, Rales, Rhonchi or Accessory Resp Muscle Use
Cardiac: Regular Rhythm and S1/S2; Negative Murmur, Rub or Gallop
GI: Soft, Nontender, Nondistended and Normal Bowel Sounds
Musculoskeletal: No Clubbing, No Cyanosis and No Edema
Skin: Warm, Dry and Normal Turgor; Negative Rash
Neuro: AO x 3 and Nonfocal/Grossly Intact
Psych: Calm
Data Reviewed
-
Labs: Labs Reviewed by me and Discussed with Patient
[2024-06-12] MEDS: ROCEPHIN 1000 MG IV (11:58)
[2024-06-12] MEDS: STERILE WATER FOR INJECTION 10 ML IV (11:59)
[2024-06-12] MEDS: ZITHROMAX INFUSION 250 IV (11:59)
--- NOTE | 2024-06-12 15:59 | W.PN.PUL3 ---
Today's Communication / Plan
-
Steroids decreased
Continue airway clearance
Continue antibiotics
Obtain chest x-ray 06/13
Assessment
-
64-year-old woman with past medical history noted. Admitted with cough, fever, shortness of breath. 3 days ago diagnosed with flu, started on Tamiflu by primary doctor. Symptoms progressed and patient came to the emergency room for evaluation.
Chest x-ray demonstrated right upper lobe infiltrate. We were consulted for further evaluation.
Right upper lobe pneumonia-suspect superinfection-flu +3 days ago
MRSA screening positive in 2021
Leukocytosis
Hyponatremia
Conditions present prior admission:
Obstructive sleep apnea-mild AHI 10.8 events per hour-intolerant to CPAP
COPD/chronic bronchitis
Pulmonary function testing 04/07/2024: FEV1 80% of predicted/FVC 86% of predicted/FEV1/FVC ratio 71%/DLCO 75%.
On Symbicort/follows up with Dr. Mullen-last appointment 04/07/2024.
Last prednisone was in the spring 2022
Prior history of complicated parapneumonic effusion in December 2017 with MRSA pneumonia
Multiple pulmonary nodules stable December 2023-plan was to repeat December 2024.
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
Family history of lung cancer
chronic back pain
Neuropathy
History of diverticulitis
GERD
History of ascending aortic aneurysm
Right breast lumpectomy 2016
Laparoscopy with sigmoidectomy 10/03/2021
Assessment and plan:
Clinical picture consistent with influenza pneumonia-suspect bacterial superinfection-chest x-ray on admission with right upper lobe infiltrate. New compared to prior.
-
Continue Tamiflu complete 5 days.
Continue ceftriaxone/azithromycin-hopefully 5 to 7-day course depending on clinical situation.
Sputum culture, if able to produce.
Blood cultures pending.
Trend - Currently afebrile leukocytosis
Patient has history of MRSA in the past
Obtain MRSA screening, if patient not doing well and depending on the sputum culture may need to consider vancomycin. For now hold
-
Currently not requiring oxygen supplementation
-
COPD mild-usually on Symbicort-minimal expiratory wheezing on exam.
With significant coughing unclear whether she is going to be able to perform inhaler maneuver. Discussed with patient will transition to DuoNebs 3 times a day while in the hospital.
Antitussives
Mucolytic
Cepacol lozenges
Continue IV steroids, dosing decreased
Likely contributing to leukocytosis
-
Oxygen supplementation as needed-pulse ox above 90% at the moment.
-
Patient will need radiographic follow-up. Consider repeat chest x-ray 06/13
DVT prophylaxis: Subcutaneous heparin. Patient now agreeable to pharmacological prophylaxis patient refusing sequential, education provided. Patient states she is ambulating
-
Outpatient follow-up with Dr. Mullen after DC. Last time seen in the office in March 2024 she was doing well
Subjective Data
-
Date of Service:
Date of Service: June 12, 2024
Subjective:
Patient seen and examined earlier this morning. Late entry. Patient had episode of chest pain throughout the night. Presently this is since resolved. Troponin, EKG unremarkable. Patient finally agreed to taking subcutaneous heparin. Cough
seems slightly improved
Objective Data
Data Reviewed
Vital Signs / I&O / Oxygen:
Vital Signs
Temp Pulse Resp BP Pulse Ox
98.9 F 95 17 138/80 92
06/12/24 15:49 06/12/24 14:00 06/12/24 14:00 06/12/24 14:00 06/12/24 14:00
Intake and Output
06/11/24 06/12/24 06/13/24
06:59 06:59 06:59
Intake Total 480 / 480 3825 / 3825
Balance 480 / 480 3825 / 3825
SaO2 92
Nasal Cannula flow liters per 0
minute
Physical Exam
General: Comfortable
HEENT: Normocephalic and Anicteric
Cardiovascular: S1-S2, Regular Rhythm, Murmur (n), Rub (n) and Peripheral Edema (n)
Respiratory: Wheeze (n), Crackles, Rhonchi (Few) and Non-Labored Respirations
GI: Soft, Non Distended and Non Tender
Neurology: Awake, Alert and No Motor Deficits
Skin: Cyanosis (n), Jaundice (n) and Rash (n)
Labs/Micro/Reports
Lab Data
06/12/24 03:06
06/11/24 04:52
Microbiology
06/10/24 19:44 Blood/Venous Blood Culture - Preliminary
No Growth in 24 hours- Final report to follow
[2024-06-12] MEDS: PEPCID 20 MG PO (17:28)
[2024-06-12] MEDS: SINGULAIR 10 MG PO (17:28)
[2024-06-12] MEDS: TESSALON PERLES 200 MG PO (19:49)
--- NOTE | 2024-06-12 22:25 | PTCARENOTE ---
assumed care of patient. pt is AAOx3- able to make needs known. lung course, wheezes throughout. PRN nebs given per patient request. 94% RA, admits to SOB on exertion. self in the room. care ongoing.
[2024-06-13] VITALS (12 sets, daily range): BP systolic 136–165; BP diastolic 64–92
[2024-06-13 05:20] LABS: % Basophils 0.8 % (0-2); % Immature Granulocytes 6.6 % (0-0.5); % Lymphocytes 9.6 % (20.5-51.1); % Monocytes 7.5 % (1.7-9.3); % Neutrophils 75.5 % (42.2-75.2); Absolute Basophils 0.1 10^3/uL (0-0.2); Absolute Immature Granulocytes 1.1 10^3/uL (0-0.05); Absolute Lymphocytes 1.6 10^3/uL (1.2-3.4); Absolute Monocytes 1.3 10^3/uL (0.1-0.6); Absolute Neutrophils 12.9 10^3/uL (1.4-6.5); Hematocrit 32.5 % (37.0-47.0); Hemoglobin 10.9 g/dL (12.0-16.0); Mean Corp Hgb Conc. 33.5 g/dL (33.0-37.0); Mean Corpuscular Hgb 29.3 pg (27.0-31.0); Mean Corpuscular Volume 87.4 fL (81.0-99.0); Mean Platelet Volume 9.7 fL (7.4-10.4); Nucleated Red Blood Cells % 0 %; Platelet Count 426 10^3/uL (130-400); Red Blood Cell Count 3.72 10^6/uL (4.20-5.40); Red Cell Dist. Width 13.2 % (11.5-14.5)
[2024-06-13] MEDS: DUONEB 3 ML INH ×3 (07:55→20:38)
[2024-06-13] MEDS: MUCINEX 600 MG PO ×2 (09:01→20:07)
[2024-06-13] MEDS: DELTASONE 20 MG PO (09:01)
[2024-06-13] MEDS: PROTONIX 40 MG PO (09:01)
[2024-06-13] MEDS: OMNICEF 300 MG PO ×2 (09:02→20:08)
[2024-06-13] MEDS: HEPARIN SC (09:02)
[2024-06-13] MEDS: TAMIFLU 75 MG PO (09:02)
--- NOTE | 2024-06-13 09:10 | W.PN.PUL3 ---
Today's Communication / Plan
-
Steroid with taper
Continue airway clearance
Continue antibiotics to complete a 7-day course
Repeat CXR as an outpatient in 4 to 6 weeks to assure resolution of pneumonia
Trial of codeine cough syrup and if she tolerates this then we will continue with this prn
Pulmonary service will continue to follow along while she remains hospitalized
Assessment
-
64-year-old woman with past medical history noted. Admitted with cough, fever, shortness of breath. 3 days ago diagnosed with flu, started on Tamiflu by primary doctor. Symptoms progressed and patient came to the emergency room for evaluation.
Chest x-ray demonstrated right upper lobe infiltrate. We were consulted for further evaluation.
Impression:
Right upper lobe pneumonia-suspect superinfection: Flu +3 days ago
MRSA screening positive in 2021
Leukocytosis
Hyponatremia - now resolved
Conditions present prior admission:
Obstructive sleep apnea-mild AHI 10.8 events per hour-intolerant to CPAP
COPD/chronic bronchitis
Pulmonary function testing 04/07/2024: FEV1 80% of predicted/FVC 86% of predicted/FEV1/FVC ratio 71%/DLCO 75%.
On Symbicort/follows up with Dr. Mullen-last appointment 04/07/2024.
Last prednisone was in the spring 2022
Prior history of complicated parapneumonic effusion in December 2017 with MRSA pneumonia
Multiple pulmonary nodules stable December 2023-plan was to repeat December 2024.
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
Family history of lung cancer
chronic back pain
Neuropathy
History of diverticulitis
GERD
History of ascending aortic aneurysm
Right breast lumpectomy 2015
Laparoscopy with sigmoidectomy 10/03/2021
Assessment and plan:
Clinical picture consistent with influenza pneumonia-suspect bacterial superinfection-chest x-ray on admission with right upper lobe infiltrate. New compared to prior.
-
Continue Tamiflu and complete 5 days.
Continue Abx --> now on cefdinir s/p s/p ceftriaxone/zithromax x 3 days - would complete a 7-day course depending on clinical situation.
Sputum culture, if able to produce.
Blood cultures collected 06/10/2024 shows NGTD
Trend WBC, monitor for fevers
Patient has history of MRSA in the past
Obtain MRSA screening, if patient not doing well and depending on the sputum culture may need to consider vancomycin. For now hold as she is improving
-
Currently not requiring oxygen supplementation
-
COPD mild-usually on Symbicort 160mcg- not wheezing today on exam.
With significant coughing unclear whether she is going to be able to perform inhaler maneuver. Discussed with patient that we will continue DuoNebs TID while in the hospital
She reports an allergy to codeine (hives), but also states that she has taken it before and was fine --> give trial of codeine cough syrup in the hospital, and if she tolerates this then will continue prn
Mucolytics with mucinex
Cepacol lozenges
Continue systemic steroids with prednisone and nwean as tolerated
-
Maintain SpO2 >90-94%
-
CXR performed today shows slight improvement compared to prior CXR 3 days ago
She will need repeat imaging in 4 to 6 weeks to assure complete resolution of her pneumonia
DVT prophylaxis: HSQ - Patient now agreeable to pharmacological prophylaxis, as she was previously refusing sequential, education provided. Patient states she is ambulating
-
Outpatient follow-up with Dr. Mullen after DC. Last time seen in the office in March 2024 she was doing well
Total time spent today was 37 minutes for this encounter. Time includes reviewing laboratory test/imaging results, reviewing pertinent medical records, obtaining and reviewing medical history, performing an appropriate exam, ordering medications,
tests and procedures. Time also includes documentation of this encounter, coordinating patient care and communicating with other healthcare professionals. Total time does not include separately billed tests performed on this date of service.
Subjective Data
-
Date of Service:
Date of Service: June 13, 2024
Chief Complaint: Pulmonary Follow Up
Subjective:
Patient seen this morning. Doing well with her breathing but still has a bothersome cough which is mainly dry. She does have some phlegm production at times. Currently on room air breathing comfortably. Saturating 96%, heart rate 91 and BP
149/83. No acute events reported from overnight. She currently denies chest pain, SANCHES, abdominal pain, nausea, fevers or chills.
Review of Systems
General: Other (Negative unless mentioned above)
Objective Data
Data Reviewed
Vital Signs / I&O / Oxygen:
Vital Signs
Temp Pulse Resp BP Pulse Ox
98.2 F 93 20 165/90 96
06/13/24 07:49 06/13/24 08:00 06/13/24 08:00 06/13/24 06:00 06/13/24 08:00
Intake and Output
06/12/24 06/13/24 06/14/24
06:59 06:59 06:59
Intake Total 3825 / 3825 240 / 240
Balance 3825 / 3825 240 / 240
SaO2 96
Nasal Cannula flow liters per 0
minute
Physical Exam
General: Respiratory Distress (n), Comfortable, Chills (n) and Sweats (n)
HEENT: Normocephalic and Anicteric
Cardiovascular: S1-S2, Murmur (n), Rub (n) and Peripheral Edema (n)
Respiratory: Wheeze (n), Crackles (b/l), Rhonchi (n), Non-Labored Respirations and Other (Coarse breath sounds bilaterally)
GI: Soft, Non Distended, Non Tender and Normal Bowel Sounds
Neurology: AO x 3 and Tremors (n)
Skin: Warm, Dry, Cyanosis (n), Jaundice (n) and Rash (n)
Labs/Micro/Reports
Lab Data
06/13/24 04:47
06/11/24 04:52
Microbiology
06/10/24 19:44 Blood/Venous Blood Culture - Preliminary
No Growth in 48 hours- Final report to follow
[2024-06-13] MEDS: HEPARIN 5000 UNITS SC ×2 (10:13→18:10)
[2024-06-13] MEDS: STERILE WATER FOR INJECTION IV (11:11)
[2024-06-13] MEDS: ROBITUSSIN AC 5 ML PO (12:29)
--- NOTE | 2024-06-13 12:53 | PTCARENOTE ---
Rec'd pt this AM. pt c.o. dry cough, incessent. She discussed with Dr. Moore and was ordered Guaf with codeine. Pt reports hx of allergy but that she has had it since having hives after it years ago and has not had a reaction since. vital signs
stable. ambulating in room with no issues.
--- NOTE | 2024-06-13 15:00 | W.PN.HOSP.TC ---
Today's Communication/Plan
-
Assessment / Plan
Assessment / Plan
Acute hypoxemic respiratory failure likely secondary to superimposed bacterial CAP on COPD exacerbation
-Flu positive will complete Tamiflu today
-On antibiotics day 5 of 7
-Steroids per pulmonary
-Continue Acapella and incentive spirometer
-Continue antitussives
Leukocytosis
-Peaked at 19.3
-Being covered with antibiotics and antiviral
-Afebrile since admission
-On steroids, likely marginalization from steroid use
-Will continue to monitor for fever
-If worsening or develops fever then would obtain blood cultures
Abnormal EKG
-Cardiology has recommended outpatient stress test
GERD
-Continue PPI
Lung cancer with right upper lobectomy, left lower lung wedge
-Outpatient pulmonary follow
Anticipated Discharge: 24 - 48 hours
Subjective/Interval History
-
Date of Service: June 13, 2024
Seen and examined. No new complaints. No acute overnight events.
States that night having terrible cough, worse with lower dose steroids, does not want to increase dose of steroids
Antitussives not helping
Has a known allergy history to codeine, states that she has used it previously however pharmacy will not fill it due to the allergy
Objective Data
-
Labs:
Laboratory Results
06/13/24
04:47
WBC 17.0 H
Hgb 10.9 L
Hct 32.5 L
Plt Count 426 H D
Vital Signs:
Vital Signs
Temp Pulse Resp BP Pulse Ox
98.1 F 92 18 161/88 93
06/13/24 11:47 06/13/24 14:00 06/13/24 14:00 06/13/24 12:00 06/13/24 14:00
I&O
06/12/24 06/13/24 06/14/24
06:59 06:59 06:59
Intake Total 3825 / 3825 240 / 240
Balance 3825 / 3825 240 / 240
Physical Exam
-
General: Well Developed and Well Nourished
HEENT: Normocephalic and Atraumatic
Respiratory: Wheezes
Cardiac: Regular Rhythm and S1/S2
GI: Soft, Nontender, Nondistended and Normal Bowel Sounds
Musculoskeletal: No Clubbing and No Cyanosis
Neuro: Awake, Alert, Oriented and AO x 3
Psych: Calm
--- NOTE | 2024-06-13 16:00 | CM ---
CM reviewed chart- ADC 1-2 days
PT signed off as pt indep in room
Currently on RA
No dc needs identified at this time
CM will remain available for planning
Discharge Disposition- anticipate home no needs
[2024-06-13] MEDS: SINGULAIR 10 MG PO (18:11)
[2024-06-13] MEDS: PEPCID 20 MG PO (18:11)
--- NOTE | 2024-06-13 22:15 | PTCARENOTE ---
Caring for patient overnight. aaox3, denies pain. C/O SOB when shes laying flat. NSR on monitor. 94% RA. Dry cough, prn meds. NO other issues at this time. Call grider in reach.
[2024-06-14] VITALS (7 sets, daily range): BP systolic 134–150; BP diastolic 66–92; BMI 27.9
[2024-06-14] MEDS: HEPARIN 5000 UNITS SC ×2 (00:24→09:00)
[2024-06-14] MEDS: ROBITUSSIN AC 5 ML PO (00:24)
--- NOTE | 2024-06-14 07:09 | PN.CDI ---
CDI
- -
CDI:
Physician Documentation Request
Admit Date: 06/10/24 15:10
Dear Doctor Dimitrios,
Please review the following and provide your response in the progress notes.
Clinical Indicators:
06/10 ED...Saw PCP 3 days ago, tested flu +, Covid neg, on day 3 of Tamiflu,
#...cannot sleep due to cough, is fatigued, nauseous.
#...Yesterday fever 102.1
06/10 H+P +Flu-A PNA
#...abx in ED
06/10, Initial VS:
99.2 111 18 117/71 95%
Heart Rate, >100
Laboratory Tests
06/10/24 06/11/24 06/12/24
07:43 04:52 03:06
WBC 17.8 H 11.2 H 19.3 H
06/13/24
04:47
WBC 17.0 H
Based on the above and your clinical assessment, please clarify which of the following most accurately describes the status of the patient's infection:
Sepsis, POA
Severe Sepsis, POA
Localized Infection Only, Without Systemic Illness
- indicate the site/source, such as UTI, pneumonia etc.
Other(please specify)
Sepsis
- Systemic manifestations of infection, with 2 or more SIRS criteria which include:
- Fever >100.4 degrees F or hypothermia < 96.8 degrees F
- Leukocytosis - WBC > 12,000 or leukopenia - WBC < 4,000 or > 10% bands
- Tachycardia > 90 beats per minute
- Tachypnea - RR > 20 breaths per minute or PaCO2 , 32mmHg
Source: Merck Manual 2013
- Indicate the known or suspected underlying infection, such as UTI, pneumonia or cellulitis
Severe Sepsis
- Sepsis with associated acute organ dysfunction, such as renal or respiratory failure
- Documentation should indicate the association between the sepsis and the organ dysfunction
Use of terms such as suspected, likely, concern for, or probable (associated with a specific diagnosis that is being evaluated, monitored, or treated as if it exists) are acceptable and can be coded in the inpatient setting, when documented at the
time of discharge.
Thank you,
Mar Silva RN BSN CCDS
CDI Specialist
please contact via tiger text
Please use your independent medical judgment in providing your response.
--- NOTE | 2024-06-14 07:22 | PN.CDI ---
CDI
- -
CDI:
Physician Documentation Request
Admit Date: 06/10/24 15:10
Dear Doctor Dimitrios,
Please review the following and provide your response in the progress notes.
Clinical Indicators:
06/10 H+P:
#Yesterday she had a fever 102.1.
#... able to answer questions appropriately and
#...was not using secondary muscles of respiration.
#...Satting at 92% on RA.
#Respiratory: Reports Cough and Trouble Breathing
#Respiratory: Rhonchi and Decreased Breath Sounds
06/13 PN:
#Acute hypoxemic respiratory failure likely secondary to
#...superimposed bacterial CAP on COPD exacerbation
#Maintained on RA during admission
Recognized standard criteria for respiratory failure includes:
(Source: [facility] Hospitalist Apr 2013)
Symptoms:
�Tachypnea, SOB, dyspnea
�Pallor or cyanosis
�Anxiety or restlessness
�Use of accessory muscles
�Retractions (grunting in newborns)
�Unable to speak in complete sentences
Supplemental O2 requirement of 40% (5LPM) or more Intubation is not required
Based on the above information and the recognized standard for respiratory failure could you please verify this diagnoses is still accurate and reflective of the patient�s condition to ensure quality of the medical record.
Please clarify in the Progress Notes:
Respiratory failure is/was present and is a clinical diagnosis based on (please include this additional support in the medical record)
After study respiratory failure has been ruled out
Other(please specify)
Use of terms such as suspected, likely, concern for, or probable (associated with a specific diagnosis that is being evaluated, monitored, or treated as if it exists) are acceptable and can be coded in the inpatient setting, when documented at the
time of discharge.
Thank you,
Mar Silva RN BSN CCDS
CDI Specialist
Please contact via tiger text
Please use your independent medical judgment in providing your response.
[2024-06-14] MEDS: DUONEB 3 ML INH ×2 (08:32→14:20)
[2024-06-14] MEDS: MUCINEX 600 MG PO (09:00)
[2024-06-14] MEDS: OMNICEF 300 MG PO (09:00)
[2024-06-14] MEDS: PROTONIX 40 MG PO (09:00)
[2024-06-14] MEDS: DELTASONE 20 MG PO (09:00)
--- NOTE | 2024-06-14 09:21 | W.PN.PUL3 ---
Today's Communication / Plan
-
Steroid with taper, decreasing by 10mg every 4th day until off
Continue airway clearance
Continue antibiotics to complete a 7-day course
Repeat CXR as an outpatient in 4 to 6 weeks to assure resolution of pneumonia
Continue codeine cough syrup prn as she is tolerating this without hives or any other adverse reaction
Resume Symbicort upon discharge
She is being prepared for DC home today; pulmonary service will now sign off. Thank you for allowing use to be involved in the care of this patient.
Assessment
-
64-year-old woman with past medical history noted. Admitted with cough, fever, shortness of breath. 3 days ago diagnosed with flu, started on Tamiflu by primary doctor. Symptoms progressed and patient came to the emergency room for evaluation.
Chest x-ray demonstrated right upper lobe infiltrate. We were consulted for further evaluation.
Impression:
Right upper lobe pneumonia-suspect superinfection: Flu >3 days ago
MRSA screening positive in 2021
Leukocytosis
Hyponatremia - resolved as of 06/11/2024
Conditions present prior admission:
Obstructive sleep apnea-mild AHI 10.8 events per hour-intolerant to CPAP
COPD/chronic bronchitis
Pulmonary function testing 04/07/2024: FEV1 80% of predicted/FVC 86% of predicted/FEV1/FVC ratio 71%/DLCO 75%.
On Symbicort/follows up with Dr. Mullen-last appointment 04/07/2024.
Last prednisone was in the spring 2022
Prior history of complicated parapneumonic effusion in December 2017 with MRSA pneumonia
Multiple pulmonary nodules stable December 2023-plan was to repeat December 2024.
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
Family history of lung cancer
chronic back pain
Neuropathy
History of diverticulitis
GERD
History of ascending aortic aneurysm
Right breast lumpectomy 2016
Laparoscopy with sigmoidectomy 10/03/2021
Assessment and plan:
Clinical picture consistent with influenza pneumonia-suspect bacterial superinfection-chest x-ray on admission with right upper lobe infiltrate. New compared to prior.
-
Continue Tamiflu and complete 5 days.
Continue Abx --> now on cefdinir s/p s/p ceftriaxone/zithromax x 3 days - would complete a 7-day course assuming she continues to remain clinically improved and is afebrile for 48 hrs prior to stopping Abx
Sputum culture, if able to produce.
Blood cultures collected 06/10/2024 shows NGTD
Trend WBC, monitor for fevers
Patient has history of MRSA in the past
Obtain MRSA screening (in-process) - can consider IV vanco if she is worsening - not indicated currently given she has/is improving and is pending discahrge home today
-
Currently not requiring oxygen supplementation
-
COPD mild-usually on Symbicort 160mcg- not wheezing on exam.
With significant coughing unclear whether she is going to be able to perform inhaler maneuver. Discussed with patient that we will continue DuoNebs TID while in the hospital, and resume home Symbicort upon discharge
She reports an allergy to codeine (hives), but also states that she has taken it before and was fine --> tolerated trial of codeine cough syrup given on 06/13 --> continue as needed; give Rx for home usage upon discharge; warned not to drive or
operate heavy machinery after taking
Mucolytics with mucinex
Cepacol lozenges
Continue systemic steroids with prednisone and wean as tolerated - currently on 20mg daily; wean down by 10mg every 4th day until off
-
Maintain SpO2 >90-94%
-
CXR performed yesterday showed slight improvement compared to prior CXR 4 days ago
She will need repeat imaging in 4 to 6 weeks to assure complete resolution of her pneumonia
DVT prophylaxis: HSQ
-
Outpatient follow-up with Dr. Mullen after DC. Last time seen in the office in March 2024 she was doing well
She is being prepared for DC home today; pulmonary service will now sign off. Thank you for allowing use to be involved in the care of this patient.
Patient was seen and evaluated on 06/14/2024
Total time spent today was 26 minutes for this encounter. Time includes reviewing laboratory test/imaging results, reviewing pertinent medical records, obtaining and reviewing medical history, performing an appropriate exam, ordering medications,
tests and procedures. Time also includes documentation of this encounter, coordinating patient care and communicating with other healthcare professionals. Total time does not include separately billed tests performed on this date of service.
Subjective Data
-
Date of Service:
Date of Service: June 14, 2024
Chief Complaint: Pulmonary Follow Up
Subjective:
Pt was seen and evaluated on 06/14/2024 - late note entry. She feels much better - cough improved with codeine. Denies SOB at rest. Denies SANCHES, abd pain, N/V/f/c.
Review of Systems
General: Other (negative unless mentioned above)
Objective Data
Data Reviewed
Vital Signs / I&O / Oxygen:
Vital Signs
Temp Pulse Resp BP Pulse Ox
98.6 F 88 15 138/81 92
06/14/24 07:05 06/14/24 08:36 06/14/24 08:36 06/14/24 06:00 06/14/24 08:36
Intake and Output
06/13/24 06/14/24 06/15/24
06:59 06:59 06:59
Intake Total 240 / 240
Balance 240 / 240
SaO2 92
Nasal Cannula flow liters per 0
minute
Physical Exam
General: Respiratory Distress (n), Comfortable, Chills (n) and Sweats (n)
HEENT: Normocephalic and Anicteric
Cardiovascular: S1-S2, Murmur (n), Rub (n) and Peripheral Edema (n)
Respiratory: Wheeze (n), Crackles (b/l), Rhonchi (n), Non-Labored Respirations and Other (Coarse breath sounds bilaterally)
GI: Soft, Non Distended, Non Tender and Normal Bowel Sounds
Neurology: AO x 3 and Tremors (n)
Skin: Warm, Dry, Cyanosis (n), Jaundice (n) and Rash (n)
Labs/Micro/Reports
Lab Data
06/13/24 04:47
06/11/24 04:52
Microbiology
06/10/24 19:44 Blood/Venous Blood Culture - Preliminary
No Growth in 72 hours- Final report to follow
[2024-06-14] MEDS: STERILE WATER FOR INJECTION IV (11:32)
--- NOTE | 2024-06-14 13:47 | W.PN.HOSP.TC ---
Today's Communication/Plan
-
dc home with cefdinir and taperingg dose of steroids
More than 30 minutes spent in discharge including
Final examination of the patient
Summarizing hospital stay
Instructions for continuing care to all relevant caregivers
Preparation of discharge records, prescriptions, and referral forms
Total time spent (in minutes): 33mins
Assessment / Plan
Assessment / Plan
Acute hypoxemic respiratory failure likely secondary to superimposed bacterial CAP on COPD exacerbation
-Flu positive will complete Tamiflu 06/13
-On antibiotics day 6 of 7
-Steroids per pulmonary - taper
-Continue Acapella and incentive spirometer
-Continue antitussives
Leukocytosis
-Peaked at 19.3
-Being covered with antibiotics and antiviral
-Afebrile since admission
-On steroids, likely marginalization from steroid use
-Will continue to monitor for fever
-If worsening or develops fever then would obtain blood cultures
Abnormal EKG
-Cardiology has recommended outpatient stress test
GERD
-Continue PPI
Lung cancer with right upper lobectomy, left lower lung wedge
-Outpatient pulmonary follow
Anticipated Discharge: Today
Subjective/Interval History
-
Date of Service: June 14, 2024
Seen and examined. Tolerated, codeine well. Feels significantly better.
Objective Data
-
Vital Signs:
Vital Signs
Temp Pulse Resp BP Pulse Ox
98.1 F 88 15 138/81 93
06/14/24 11:39 06/14/24 08:36 06/14/24 08:36 06/14/24 06:00 06/14/24 09:55
I&O
06/13/24 06/14/24 06/15/24
06:59 06:59 06:59
Intake Total 240 / 240
Balance 240 / 240
Physical Exam
-
General: Well Developed and Well Nourished
HEENT: Normocephalic and Atraumatic
Respiratory: Rhonchi
Cardiac: Regular Rhythm and S1/S2
GI: Soft, Nontender, Nondistended and Normal Bowel Sounds
Skin: Warm and Dry
Neuro: Awake, Alert, Oriented and AO x 3
Psych: Calm
--- NOTE | 2024-06-14 13:49 | W.DCSUMMARY ---
Addendum entered and electronically signed by Kasi Plunkett MD 06/15/24 16:12:
Severe sepsis secondary to influ A pna
Acute hypoxic respiratory failure with spo2 of 89%
Original Note:
Discharge Summary
Discharge Data
Date of Admission: 06/10/24
Date of Discharge: 06/14/24
-
Pending Results: No
Additional Pending Results:
64 female history of chronic back pain neuropathy COPD lung cancer with right upper lobe lobectomy 2017, left lower lung wedge 06/2020, diverticulitis GERD
Presented with cough fever and bodyaches and recently had tested positive for flu for which on the day of presentation was the third day of Tamiflu. Continued to have high fevers. There was concern for a superinfection therefore started on
antibiotics. Was evaluated by pulmonary that recommended to continue airway clearance continue antibiotics and taper steroids as tolerated.
While in the hospital completed Tamiflu. Will plan to complete cefdinir in 3 days. Continue tube taper prednisone.
Had a severe cough that improved with guaifenesin/codeine and will be discharged home with this along with benzonatate Perles.
Prednisone 20 mg x 1 day
Prednisone 10 mg x 3 days
Then stop
Will need to repeat chest x-ray in 4 to 6 weeks outpatient pulmonary follow-up
Should be noted that the EKG was abnormal with anterior/lateral T wave inversions. Troponin was normal. Evaluated by cardiology recommended outpatient follow-up for stress test as second troponin was negative.
Discharge Plan
-
Patient Disposition: Home (Routine Discharge)
Discharge Diagnosis/Procedures: Flu and bacterial pneumonia
Condition: Fair
Diet: As tolerated
Activity: As tolerated
Activity Restrictions/Additional Instructions:
Presented with cough fever and bodyaches and recently had tested positive for flu for which on the day of presentation was the third day of Tamiflu. Continued to have high fevers. There was concern for a superinfection therefore started on
antibiotics. Was evaluated by pulmonary that recommended to continue airway clearance continue antibiotics and taper steroids as tolerated.
While in the hospital completed Tamiflu. Will plan to complete cefdinir in 3 days. Continue tube taper prednisone.
Had a severe cough that improved with guaifenesin/codeine and will be discharged home with this along with benzonatate Perles.
Prednisone 20 mg x 1 day
Prednisone 10 mg x 3 days
Then stop
Will need to repeat chest x-ray in 4 to 6 weeks outpatient pulmonary follow-up
Should be noted that the EKG was abnormal with anterior/lateral T wave inversions. Troponin was normal. Evaluated by cardiology recommended outpatient follow-up for stress test as second troponin was negative.
Referrals:
Radha Mullen MD [Active] - in two to four weeks
Kimberly Sinclair MD [Family Provider] -
Prescriptions:
New
prednisone 20 mg Tablet
20 mg PO DAILY 4 Days Qty: 5 0RF
Rx Instructions:
Prednisone (take 2 tabs) 20mg x 1day
Prednisone (take 1 tab) 10mg x 3days
cefdinir 300 mg Capsule
300 mg PO Q12 3 Days Qty: 6 0RF
Chloraseptic Sore Throat 6-10 mg Lozenge
1 jose PO Q4HPRN PRN (Reason: sore throat) Qty: 18 0RF
benzonatate 100 mg Capsule
200 mg PO TIDPRN PRN (Reason: cough) 5 Days Qty: 15 0RF
codeine-guaifenesin 10-100 mg/5 mL Liquid
5 ml PO Q4HPRN PRN (Reason: cough) 5 Days Qty: 60 0RF
ipratropium-albuterol 0.5 mg-3 mg(2.5 mg base)/3 mL Solution For Nebulization
3 ml inhalation R Q4HPRN PRN (Reason: Wheezing) 30 Days Qty: 30 0RF
Continued
albuterol sulfate 1 PUFF HFA aerosol inhaler
2 puff inhalation R Q4HPRN PRN (Reason: sob)
multivitamin with folic acid [Tab-A-Lizeth] 1 TABLET tablet
1 tab PO DAILY
montelukast 10 MG tablet
10 mg PO QPM
famotidine 20 MG tablet
20 mg PO QPM
esomeprazole magnesium [Nexium] 40 MG capsule,delayed release(DR/EC)
40 mg PO DAILY
budesonide-formoterol [Symbicort] 160-4.5 mcg/actuation Hfa Aerosol Inhaler
2 inh INHALATION R BID
ibuprofen 200 MG tablet
400 mg PO Q6HPRN PRN (Reason: moderate pain)
Discontinued
oseltamivir [Tamiflu] 75 mg Capsule
75 mg PO BID
Discharge Orders:
Discharge Patient (As Directed); Ordered 06/14/24
Ordered By: Kasi Plunkett
Discharge Date and Time
Print Language: AZERI
--- NOTE | 2024-06-14 14:01 | CM ---
CM following re: discharge planning.
Reviewed pt's chart, met with pt and pt's spouse at bedside.
Discharge order noted. Pt is aware, expressed her agreement with discharge. IMM reviewed placed on chart, pt has a copy.
Pt reports she is independent with functional ability and no after care VN services indicated.
PT and OT evaluations noted - pt has no skilled needs, independent with functional ability.
D/C plan: home no needs. Spouse to transport
== END 2024-06-14 15:59 | disposition home or self-care (01) | DRG 871 ==
LOC: IMU 15:10
PROVIDERS: Internal Medicine; Nurse Practitioner; Registered Nurse; ADMITTING PHYSICIAN Internal Medicine; ATTENDING PHYSICIAN Hospitalist; CONSULT PHYSICIAN Internal Medicine Cardiovascular Disease; CONSULT PHYSICIAN Internal Medicine Critical Care Medicine; EMERGENCY PHYSICIAN Emergency Medicine; FAMILY PHYSICIAN Internal Medicine
DX: A41.9 Sepsis, unspecified organism (principal); J09.X1 Influenza due to identified novel influenza A virus with pneumonia; J18.9 Pneumonia, unspecified organism; J15.9 Unspecified bacterial pneumonia; J96.01 Acute respiratory failure with hypoxia; K57.32 Diverticulitis of large intestine without perforation or abscess without bleeding; E87.1 Hypo-osmolality and hyponatremia; J44.1 Chronic obstructive pulmonary disease with (acute) exacerbation; Z87.891 Personal history of nicotine dependence; R65.20 Severe sepsis without septic shock; K21.9 Gastro-esophageal reflux disease without esophagitis
CPT/HCPCS: 71046; 80048; 80053; 84484; 85025; 85027; 87040; 87070; 87147; 93005; 94640; 96361; 96365; 96375; 96376; 97162; 99285

== ENCOUNTER → 2024-09-09 12:53 | Outpatient (REF) | payer MEDICARE, OTHER, SELFPAY | LOC: RCS 12:53 | PROVIDERS: ATTENDING PHYSICIAN Internal Medicine Cardiovascular Disease; FAMILY PHYSICIAN Internal Medicine | DX: R94.31 Abnormal electrocardiogram [ECG] [EKG] (principal) | CPT/HCPCS: 93306 ==

== ENCOUNTER → 2024-11-25 12:37 | Outpatient (REF) | payer MEDICARE, OTHER, SELFPAY ==
[2024-11-25 14:29] LABS: % Basophils 0.6 % (0-2); % Immature Granulocytes 0.2 % (0-0.5); % Lymphocytes 26.3 % (20.5-51.1); % Monocytes 7.1 % (1.7-9.3); % Neutrophils 64.8 % (42.2-75.2); Absolute Eosinophils 0.1 10^3/uL (0-0.7); Absolute Lymphocytes 1.3 10^3/uL (1.2-3.4); Absolute Monocytes 0.3 10^3/uL (0.1-0.6); Absolute Neutrophils 3.1 10^3/uL (1.4-6.5); Hematocrit 41.4 % (37.0-47.0); Hemoglobin 13.6 g/dL (12.0-16.0); Mean Corp Hgb Conc. 32.9 g/dL (33.0-37.0); Mean Corpuscular Hgb 29.5 pg (27.0-31.0); Mean Corpuscular Volume 89.8 fL (81.0-99.0); Mean Platelet Volume 10.8 fL (7.4-10.4); Nucleated Red Blood Cells % 0 %; Platelet Count 269 10^3/uL (130-400); Red Blood Cell Count 4.61 10^6/uL (4.20-5.40); Red Cell Dist. Width 13.1 % (11.5-14.5); White Blood Cell Count 4.8 10^3/uL (4.8-10.8)
[2024-11-25 15:59] LABS: ALT (SGPT) 25 U/L (0-35); AST (SGOT) 27 U/L (14-36); Albumin 4.8 g/dl (3.5-5.0); Alkaline Phosphatase 62 U/L (38-126); Blood Urea Nitrogen 11 mg/dl (7-17); Calcium 9.5 mg/dl (8.4-10.2); Carbon Dioxide 23 mmol/L (22-30); Chloride 105 mmol/L (98-107); Glucose 83 mg/dl (70-99); HDL Cholesterol 64 mg/dl; LDL Cholesterol, Calculated 109 mg/dl; Potassium 4.2 mmol/L (3.5-5.1); Sodium 137 mmol/L (135-145); Total Bilirubin 1.1 mg/dl (0.2-1.3); Total Cholesterol 195 mg/dl (50-199); Total Protein 7.2 g/dl (6.3-8.2); Triglyceride 114 mg/dl (10-149); Very Low Density Lipoprotein 22 mg/dl (0-30); eGFR > 60.00
[2024-11-25 16:06] LABS: Free T4 1.13 ng/dl (0.78-2.19)
== END ==
LOC: REG 12:37
PROVIDERS: ATTENDING PHYSICIAN Internal Medicine
DX: E78.00 Pure hypercholesterolemia, unspecified (principal); Z00.00 Encounter for general adult medical examination without abnormal findings; R94.6 Abnormal results of thyroid function studies
CPT/HCPCS: 36415; 80053; 80061; 84439; 85025

== ENCOUNTER → 2024-12-19 07:56 | Outpatient (REF) | payer OTHER, SELFPAY | LOC: REG 07:56 | PROVIDERS: FAMILY PHYSICIAN Nurse Practitioner Family | DX: Z23 Encounter for immunization (principal) | CPT/HCPCS: 36415; 86480 ==

== ENCOUNTER → 2024-12-21 11:09 | Outpatient (REF) | payer MEDICARE, OTHER, SELFPAY | LOC: RAD 11:09 | PROVIDERS: ATTENDING PHYSICIAN Internal Medicine Critical Care Medicine; FAMILY PHYSICIAN Internal Medicine | DX: R91.8 Other nonspecific abnormal finding of lung field (principal) | CPT/HCPCS: 71250 ==

== ENCOUNTER → 2025-04-18 13:04 | Outpatient (REF) | payer MEDICARE, OTHER, SELFPAY | LOC: RAD 13:04 | PROVIDERS: ATTENDING PHYSICIAN Physician Assistant; FAMILY PHYSICIAN Internal Medicine | DX: E55.9 Vitamin D deficiency, unspecified (principal); M13.80 Other specified arthritis, unspecified site; M79.10 Myalgia, unspecified site; M79.641 Pain in right hand; M79.642 Pain in left hand; Z85.118 Personal history of other malignant neoplasm of bronchus and lung | CPT/HCPCS: 73130 ==